=== PATIENT | male | born 1960 | race Hispanic/Latino ===

== ENCOUNTER 2017-03-30 07:25 | Outpatient (CLI) | payer OTHER ==
--- NOTE | 2017-03-30 09:27 | Cat Scan Report ---
Limited CT scan of chest for calcium scoring: History: Family history of heart disease. Findings: Limited study of CT scan of chest was performed to evaluate coronary arteries. This dictation is for non-cardiac portion of the chest which was included in study. There is no hilar or mediastinal mass. Visualized lungs are expanded and clear. Impression: No significant abnormality.
== END 2017-03-30 07:26 | disposition home or self-care (01) ==
LOC: CT 07:25 → EDSTATUS 08:00
PROVIDERS: ATTEND Internal Medicine
DX: R06.02 Shortness of breath (principal); Z82.49 Family history of ischemic heart disease and other diseases of the circulatory system
CPT/HCPCS: 75571